=== PATIENT | male | born 1995 | race Caucasian/White ===

== ENCOUNTER 2021-06-04 18:07 | Emergency (ER) | payer BC, SELFPAY ==
--- NOTE | ~2021-06-04 | XR_ITS ---
EXAMINATION: XR hand RT min 3V EXAM DATE: 06/04/2021 18:38 INDICATION: Right hand smashed by a heavy concrete block. TECHNIQUE: Right hand frontal, lateral and oblique projections obtained and reviewed. There is no pr ior study for comparison. FINDINGS: Right metacarpal bones are unremarkable. There are no acute fractures or dislocations iden tified. There is no subcutaneous gas. There is soft tissue swelling over the 5th metacarpal bone. There are no radiopaque foreign bodies. IMPRESSION: 1. XR hand RT min 3V exam without acute osseous findings. 2. Soft tissue swelling. Reviewed, dictated and finalized at location A.
--- NOTE | 2021-06-04 18:19 | ED.UPPEXIN ---
HPI - Extremity Injury (Upper) General Chief Complaint: Extremity Injury, Upper Stated Complaint: Rt hand pain Time Seen by Provider: 06/04/21 18:30 Source: patient, RN notes reviewed and old records reviewed Mode of arrival: ambulatory Limitations: no limitations History of Present Illness HPI narrative: 26 year old male who presents to [facility] care with complaints of right hand pain for the past one week duration. Patient states that he was trying to keep a cinder block from falling onto to his foot and hit his 5th metacarpal region of his right hand. Patient has been taking Advil for his pain. Patient has no swelling or bruising to hand but increased pain with any movement of his right hand or any palpation of lateral aspect of his right hand. Patient states that he has been applying ice to his hand also for comfort measure. MD complaint: injury to: right and hand Severity scale (1-10): 7 (with any movement or palpation of right hand) Treatments prior to arrival: NSAIDS Related Data Home Medications Medication Instructions Recorded Confirmed No Home Medications 06/04/21 06/04/21 Allergies Allergy/AdvReac Type Severity Reaction Status Date / Time No Known Allergies Allergy Verified 06/04/21 19:00 Review of Systems Review of Systems: CONSTITUTIONAL: Denies fever, chills, or sweats. EYES: Denies visual changes, redness, or discharge. ENT: Denies rhinorrhea, congestion, sore throat, or otalgia. CARDIOVASCULAR: Denies chest pain, palpitations, or edema. RESPIRATORY: Denies cough or dyspnea. GASTROINTESTINAL: Denies abdominal pain, nausea, vomiting, or diarrhea. GENITOURINARY: Denies dysuria or hematuria. SKIN: Denies rash or itching. MUSCULOSKELETAL: Denies back pain,positive for right hand pain along lateral aspect, or myalgia. NEUROLOGIC: Denies headache, numbness, or weakness. PSYCHIATRIC: Denies anxiety or depression. All systems reviewed & are unremarkable except as noted in HPI and below PMFSH Past Medical History Medical History (Updated 06/04/21 @ 19:05 by Morena Wells NP) Asthma Strep throat Surgical History Surgical History (Updated 06/04/21 @ 19:05 by Morena Wells NP) No pertinent past surgical history Family History Family History (Updated 06/04/21 @ 19:06 by Morena Wells NP) Grandparent Hypertension Diabetes mellitus Mother Diabetes mellitus Social History Social History Smoking status: Never smoker Comments At time of signature, agree with nursing past medical, surgical, social and family history. There is no relevant family history pertinent to the presenting complaint Exam Narrative: GENERAL: Well-appearing, well-nourished, and in no acute distress. HEAD: Normocephalic, atraumatic. EYES: PERRLA and EOMI. ENT: Nares clear, no rhinorrhea or epistaxis. Mucous membranes moist. NECK: Supple. no lymphadenopathy CHEST: Clear to auscultation. No respiratory distress. HEART: Regular rate and rhythm. No murmur heard. Normal peripheral pulses. ABDOMEN: Soft, nontender, nondistended, normal active bowel sounds. EXTREMITIES: Normal range of motion. No edema with exception of pain to right hand along lateral aspect of his right hand with tenderness on palpation and movement. Right hand has brisk capillary refill to nail beds with hand warm and pink, fingers fully mobile, strong right radial pulse. SKIN: Warm, dry, no rash. NEURO: No focal deficits. Alert and oriented x3. Course Vital Signs Vital signs: Vital Signs Temperature 37.1 C 06/04/21 18:21 Pulse Rate 81 06/04/21 18:21 Respiratory Rate 18 06/04/21 18:21 Blood Pressure 154/94 H 06/04/21 18:21 Pulse Oximetry 100 06/04/21 18:21 Temperature 37.1 C 06/04/21 18:21 Pulse Rate 81 06/04/21 18:21 Respiratory Rate 18 06/04/21 18:21 Blood Pressure 154/94 H 06/04/21 18:21 Pulse Oximetry 100 06/04/21 18:21 MDM - Extremity Injur
[2021-06-04 18:21] VITALS: BP 154/94; PULSE 81; RESP 18; TEMP 37.1; O2SAT 100
== END 2021-06-04 19:12 | disposition home or self-care (01) ==
PROVIDERS: Emergency Provider Registered Nurse; PCP Physician Assistant
DX: S60.221A Contusion of right hand, initial encounter (principal); W20.8XXA Other cause of strike by thrown, projected or falling object, initial encounter; J45.909 Unspecified asthma, uncomplicated
CPT/HCPCS: 73130; 99213; G0463